=== PATIENT | female | born 1970 | race African-American/Black ===

== ENCOUNTER 2019-08-26 12:55 | Emergency (ER) | payer MEDICAID ==
[~2019-08-26] VITALS: Ht 167.6 cm; Wt 72.6 kg
[2019-08-26 12:59] VITALS: BP 135/96
[2019-08-26] MEDS ORDERED: PANTOPRAZOLE SO40 MG ORAL (13:05)
--- NOTE | 2019-08-26 13:08 | NUR ---
ED Nurse Note: PT WALKED IN DUE TO LEFT WRIST PAIN AND SWELLING S/P FALL WHILE SHE WAS DOING JUMP ROPE. MOANING PAIN PAIN BUT DENIES HEADACHE/INJURY. PT CAME IN WITH HERMAN WRAPPED ON LEFT WRIST. AAO X,4 AMBULATORY AND ABLE TO MOVE LEFT WRIST BUT SWOLLEN.
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
[2019-08-26] MEDS ORDERED: HYDROcodone/Acetamin 5/325 tab ORAL ONE (13:30)
[2019-08-26] MEDS ORDERED: NORCO 5-325 TA1 EACH ORAL (14:47)
[2019-08-26] MEDS ORDERED: IBUPROFEN600 MG ORAL (14:47)
[2019-08-26 14:59] VITALS: BP 138/85
--- NOTE | 2019-08-26 14:59 | NUR ---
ER DISCHARGE NOTE: Patient is cleared to be discharged per PA, pt is aox4, on room air, with stable vital signs. pt was given dc and prescription instructions, pt was able to verbalize understanding, pt id band removed. pt is able to ambulate with steady gait. pt took all belongings.
--- NOTE | 2019-08-26 15:01 | Diagnostic Imaging Report ---
EXAM: XR Left Wrist Complete, 3 or More Views CLINICAL HISTORY: PAIN TECHNIQUE: Frontal, lateral and oblique views of the left wrist. COMPARISON: Left hand x-rays obtained the same date FINDINGS: Bones/joints: Nondisplaced comminuted distal radial intra-articular fracture. No other fracture or dislocation identified. Soft tissues: Soft tissue swelling overlying the wrist and hand. No radiodense foreign bodies. No soft tissue gas lucencies. IMPRESSION: 1. Nondisplaced comminuted distal radial intra-articular fracture. 2. Soft tissue swelling overlying the wrist and hand.
--- NOTE | 2019-08-26 15:01 | Diagnostic Imaging Report ---
EXAM: XR Left Hand Complete, 3 or More Views CLINICAL HISTORY: PAIN TECHNIQUE: Frontal, lateral and oblique views of the left hand. COMPARISON: Left wrist x-rays obtained the same date FINDINGS: Bones/joints: Nondisplaced comminuted distal radial intra-articular fracture. No other fracture or dislocation identified in the hand. Soft tissues: Mild diffuse soft tissue swelling overlying the hand. No radiodense foreign bodies. No soft tissue gas lucencies. IMPRESSION: 1. Nondisplaced comminuted distal radial intra-articular fracture. 2. Mild diffuse soft tissue swelling overlying the hand.
== END 2019-08-26 14:59 | disposition home or self-care (01) ==
LOC: EMR 13:36
DX: S52.502A Unspecified fracture of the lower end of left radius, initial encounter for closed fracture (principal); S63.502A Unspecified sprain of left wrist, initial encounter; W19.XXXA Unspecified fall, initial encounter; Y93.56 Activity, jumping rope; Y92.9 Unspecified place or not applicable; K21.9 Gastro-esophageal reflux disease without esophagitis
CPT/HCPCS: 29130; 73110; 73130; Z7502; 99284